=== PATIENT | female | born 1965 | race Caucasian/White ===

== ENCOUNTER 2021-04-30 07:52 | Day surgery (SDC) | payer BC ==
[~2021-04-30] VITALS: Ht 170.2 cm; Wt 69.0 kg
[2021-04-30] MEDS ORDERED: PRILOTC PO (08:33)
[2021-04-30] MEDS ORDERED: ONE-A-DAY ESSE1 EACH PO (08:33)
[2021-04-30] MEDS ORDERED: TYLENOL 325MG325 MG PO (08:34)
[2021-04-30 08:35] VITALS: BP 127/77; PULSE 66; TEMP 97.9
[2021-04-30] MEDS ORDERED: BENTYL 10MG10 MG/CAP PO (09:22)
[2021-04-30 09:30] VITALS: BP 112/72; PULSE 67; TEMP 97.4
--- NOTE | 2021-04-30 09:30 | NUR ---
0930- PATIENT BROUGHT BACK TO [facility] VIA CART. AMBULATED TO CHAIR WITHOUT DIFFICULTY. PLACED ON MONITOR, VITAL SIGNS STABLE. PATIENT IS AWAKE ORIENTED. DENIES PAIN OR NAUSEA. REQUESTS WATER AT THIS TIME. AT BEDSIDE TO DRIVE PATIENT HOME. IV INFUSING. TARSHA RN AT BEDSIDE FOR REPORT. WARM BLANKET PROVIDED, CALL GARZA WITHIN REACH. WILL CONTINUE TO MONITOR. 0945- VITAL SIGNS STABLE. TOLERATING WATER WITHOUT DIFFICULTY. AWAITING TO SPEAK WITH DR. IVEY. WILL MONITOR.
[2021-04-30 09:45] VITALS: BP 110/70; PULSE 56
[2021-04-30 10:00] VITALS: BP 116/71; PULSE 53
--- NOTE | 2021-04-30 10:00 | NUR ---
DR. IVEY AT BEDSIDE TO DISCUSS RESULTS WITH PATIENT AND . PATIENT STATES SHE FEELS READY TO GO HOME AT THIS TIME. DISCHARGE INSTRUCTIONS REVIEWED WITH PATIENT AND FAMILY. IV REMOVED, INTACT. PATIENT TO GET DRESSED AT THIS TIME. 1015- PATIENT BROUGHT DOWN TO LOBBY VIA WHEEL CHAIR. ALL BELONGINGS IN HAND. TO DRIVE PATIENT HOME.
== END 2021-04-30 10:15 | disposition home or self-care (01) ==
LOC: SDCO 07:52
DX: D12.2 Benign neoplasm of ascending colon (principal); D12.8 Benign neoplasm of rectum; K57.30 Diverticulosis of large intestine without perforation or abscess without bleeding; K64.0 First degree hemorrhoids; K62.5 Hemorrhage of anus and rectum; K21.9 Gastro-esophageal reflux disease without esophagitis; R19.7 Diarrhea, unspecified; M19.90 Unspecified osteoarthritis, unspecified site; D64.9 Anemia, unspecified; E87.6 Hypokalemia; Z90.710 Acquired absence of both cervix and uterus; Z90.49 Acquired absence of other specified parts of digestive tract; Z79.899 Other long term (current) drug therapy; Z87.891 Personal history of nicotine dependence
CPT/HCPCS: J2704; J3010